=== PATIENT | male | born 1955 | race Caucasian/White ===

== ENCOUNTER → 2016-10-15 | Outpatient (CLI) | payer OTHER ==
[~2016-10-15] MED LIST: ASPIRIN EC81 MG PO; BRILINTA90 MG PO; IMDUR30 MG PO; LEVOTHROID(SYN75 MCG PO; VASOTEC2.5 MG PO; ZOCOR80 MG PO
--- NOTE | ~2016-10-15 | ESTC ---
Cardiac Perfusion Imaging Demographics Patient Name ROSELINE Charles Gender Male Patient Number [id number] Race Visit Number [id number] [place] [id number] Room Number Accession Number [id number] Height 70 inches Date of 1955 Weight 180 pounds Interpreting Jadyn Hernandez MD Date of study 10/15/2016 Physician Supervising /CORY Iqbal NM Technologist Lyn Tyler APRN Ordering Physician Stress instrumentation technician Stress ECG Reading Albertina Iqbal Nurse Zak Simon RN Physician [employer]AIL STORE CLERK Procedure Procedure Type: Nuclear Stress Test:Exercise, Cardiolite Stress Test Procedure Start time: 10/15/2016 08:35 Indications: Chest pressure. 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 Conclusions Summary Cardiolite SPECT images demonstrates a mild reversible defect involving the basal inferior wall. This does extend into the inferolateral wall and basal lateral wall. There is a fixed defect noted in the inferolateral wall in the basal region. Normal TID ratio Gated images demonstrate overall preserved left ventricular systolic function. LVEF is 57% Stress Protocols Resting ECG Sinus rhythm poor R wave progression in the anterior leads. Resting HR:55 bpm Resting BP:140/75 mmHg Pre-stress physical exam: Complains of intermittent chest pain. Stress Protocol:Exercise Peak HR:142 bpm HR response: Appropriate Peak BP:162/72 mmHg BP response: Appropriate Predicted HR: 158 bpm HR/BP product:70210 % of predicted HR: 90 Test duration:10:40 min Reason for termination:Target heart rate Exercise effort:Excellent Perceived exertion:9 ECG Findings Sinus tachycardia. ST segment depression II, III, AVF and V5, V6 Arrhythmias Rare PVC Symptoms Mild shortness of breath Stress Interpretation The electrocardiographic portion of the stress test was negative for ischemia. Blood pressure response was normal, heart rate response was normal for exertion. The Murdock Treadmill Score was +5. This corresponds to a low risk stress test. Stress supervision and interpretation provided by Fani Eng APRN . Imaging Results Summed scores - Summed stress score: 13 - Summed rest score: 9 - Summed difference score: 4 Stress ejection Ejection fraction:58 % EDV :99 ml ESV :42 ml Stroke volume :57 ml LV mass :139 gr Imaging Protocols Rest Stress Isotope:Tc99m Sestamibi IV Isotope: Tc99m Sestamibi IV Isotope dose:12.57 mCi Isotope dose:37.7 mCi Date:10/15/2016 08:08 Date:10/15/2016 11:03 Technique: Gated Technique: Gated SPECT SPECT Supine Supine Scan Time:45-60 minutes post Scan Time:45-60 minutes post injection injection Medical History Admission Data Admission date: 10/15/2016 Admission Time: 07:40 Hospital Status: Outpatient. Signatures dtt: David Salamanca (cardio) dtd: 10/15/16 0835 Physician Self Edit
== END | disposition disaster alternative care site (69) ==
LOC: GRAD 07:40
DX: I25.10 Atherosclerotic heart disease of native coronary artery without angina pectoris (principal); E78.00 Pure hypercholesterolemia, unspecified; R07.9 Chest pain, unspecified; Z82.49 Family history of ischemic heart disease and other diseases of the circulatory system; Z95.1 Presence of aortocoronary bypass graft
CPT/HCPCS: A9500